=== PATIENT | male | born 1990 | race Caucasian/White ===

== ENCOUNTER 2024-12-11 14:03 | Outpatient (AMB) | payer OTHER, SELFPAY ==
--- NOTE | 2024-12-11 14:07 | A.OFFPC_ITS ---
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 Assistant Teacher Required: No Accompanied by: Self / Same As Patient Allergies No Known Allergies Allergy (Verified 12/11/24 14:28) Medication List - Last Reconciled 12/11/24 by RUFINO Baltazar escitalopram oxalate 10 mg PO DAILY Tobacco use date assessed: 12/11/24 Dental Screening Dental Screen Date: 12/11/24 Did you have a dental visit in the last 12 months?: Yes Did you have a dental problem in the last 6 months where you did not have access to dental care?: No Was dental information given to patient?: Patient has dentist HPI MAJOR ACCOUNT MANAGER-PE PHQ-9 needed. HPI Details Previous PCP:Ac Arroyo [place], [facility] Last visit:April PE: He is not sure Specialist: psych BHN was there but finished fdc house OBGYN:n/a Past medical history: Left knee fracture last year February, and the insurance, overdoses, detoxes, heroin, cocaine, Medications: hydroxyzine, campral , escitalopram oxalate 10 mg daily Family HX: Mother struggled with drugs Problem: The patient is a 34-year-old male presenting to [facility] care. He reports concerns about a persistent cough, sinus issues, and a history of substance use disorder. The patient reports a persistent cough that began two weeks ago following a cold. The cough is described as phlegmy and occurs primarily in the mornings and at night, with occasional voice changes. The patient works in an environment with significant dust exposure, which may contribute to the symptoms. The patient has a history of a knee fracture sustained in February of the previous year. Physical therapy was initiated but discontinued due to insurance issues. The patient experiences intermittent knee pain, which is expected to improve over time. The patient has a history of substance use disorder, including previous overdoses and detoxifications. Currently, the patient is engaged in therapy every two weeks and sees a psychiatrist periodically for medication management. The patient is on medications including Lexapro, Campral, and hydroxyzine for anxiety and substance use management. [facility] Medical History (Updated 12/13/24 @ 22:04 by RUFINO Baltazar) Drug overdoses Heroin abuse Cocaine abuse Family History Mother Drug addiction Social History Household Members: Family Housing: Apartment Alcohol intake: never Patient Tobacco Use Status: Current everyday Tobacco user Tobacco use type: Cigarette Cigarette Packs Per Day: 0.5 Cigarettes Per Day: 10 e-Cigarette/Vaping Use: Never Used Current occupational status: employed Current occupation: [employer] Cognitive needs: No Hearing needs: No Vision needs: No Questionnaire PHQ-9 Over the last 2 weeks, how often have you been bothered by any of the following problems? 1. Little interest or pleasure in doing things: not at all 2. Feeling down, depressed, or hopeless: several days 3. Trouble falling or staying asleep, or sleeping too much: several days 4. Feeling tired or having little energy: several days 5. Poor appetite or overeating: more than half the days 6. Feeling bad about yourself - or that you are a failure or have let yourself or your family down: not at all 7. Trouble concentrating on things, such as reading the newspaper or watching television: not at all 8. Moving or speaking so slowly that other people could have noticed. Or the opposite - being so fidgety or restless that you have been moving around a lot more than usual: not at all 9. Thoughts that you would be better off or of hurting yourself in some way: not at all Total score: 5 Depression Screening Interpretation: Positive Depression Screening Done: Yes 26239 - PHQ-9 Billing: Yes Source: Developed by Drs. Jovanni Self, Loyda Solano, Robert Zamora and colleagues, with an educational monisha from [employer]. Thrive Questionnaire Date Thrive assessed: 12/11/24 I am a: Patient What is your living situation today?: I do not have a steady places to live I am temporarily staying with others Within the past 12 months, did the food you bought not last and you didn't have the money to get more?: Often true Within the past 12 months, did you worry whether your food would run out before you got money to buy more?: Sometimes True Do you have trouble paying for medicines?: Yes Do you have trouble getting transportation to medical appointments?: Yes Do you have trouble paying your heating and electricity bill?: Yes Do you have trouble taking care of your child, family member or friend?: Yes Do you have trouble with day-to-day activities such as bathing, preparing meals, shopping, managing finances, etc.?: No Are you currently unemployed and looking for a job?: No Are you interested in more education?: Yes Please select the resources that you would like help with: Housing/Mcfp, Food, Transportation, Utilities and Education Currently or been in a relationship where the following occur: No concerns reported THRIVE Score: 5 AUDIT C Alcohol Use Questionnaire (AUDIT-C) 1. How often do you have a drink containing alcohol?: Never Total Score: 0 NICOLAS-7 AMB Questionnaire NICOLAS-7 Date NICOLAS - 7 assessed: 12/11/24 Feeling nervous, anxious, or on edge: 1 = Several days Not being able to stop or control worryin = Several days Worrying too much about different things: 1 = Several days Trouble relaxin = Several days Being so restless that it is hard to sit still: 1 = Several days Becoming easily annoyed or irritable: 1 = Several days Feeling afraid as if something awful might happen: 0 = Not at all Total NICOLAS-7 score (0-4 normal; 5-9 mild; 10-14 moderate; 15-21 severe): 6 Source: Developed by Drs. Jovanni Self, Loyda Solano, Robert Zamora and colleagues, with an educational monisha from [employer]. NICOLAS-7 Assessment Billing NICOLAS-7 Assessment Tool: NICOLAS-7 Assessment 97315 Review of Systems Const Denies headache(s) Eyes Denies loss of vision ENT Denies vertigo, Denies dizziness, Denies headache(s), Reports nasal congestion, Reports post nasal drip and Denies sore throat Card Denies chest pain, Denies leg edema and Denies lightheadedness Resp Reports cough, Denies hemoptysis and Denies wheezing GI Denies abdominal pain, Denies melena, Denies constipation, Denies diarrhea and Denies vomiting Denies dysuria, Denies urinary frequency and Denies urinary urgency Musc Reports arthralgias (left knee ), Denies joint swelling, Denies numbness and Denies tingling Skin/Breast Denies lesions and Denies rash Neuro Denies Abnormal speech present, Denies behavioral changes, Denies vertigo, Denies dizziness, Denies headache(s), Denies loss of vision, Denies memory loss, Denies numbness and Denies tingling Psych Reports anxiety, Denies behavioral changes, Reports depression, Denies memory loss, Denies panic attacks, Denies homicidal ideation and Denies suicidal ideation Al/Lymph Denies easy bleeding and Denies easy bruising Aller/Immun Denies wheezing Physical exam (Primary Care) Vital Signs: Last Vital Signs Temp 97.1 F 12/11/24 14:13 Pulse 92 12/11/24 14:13 Resp 18 12/11/24 14:13 BP 94/60 12/11/24 14:13 Pulse Ox 96 12/11/24 14:13 Oxygen Delivery Method Room Air 12/11/24 14:13 BMI result Body Mass Index 36.1 Tobacco/Smoking Status: Tobacco use Status Tobacco use date assessed 12/11/24 12/11/24 14:25 Patient Tobacco Use Status Current everyday Tobacco 12/11/24 14:25 Tobacco use type Cigarette 12/11/24 14:25 e-Cigarette/Vaping Use Never Used 12/11/24 14:25 PHQ-9: PHQ-9 Score PHQ-9: Total score 5 12/13/24 21:43 Depression Screening Interpretation: Positive Thrive Assessment: Date of Thrive Assessment Date Thrive assessed 12/11/24 12/11/24 14:25 Currently or been in a relationship where the following occur: No concerns reported Const General: healthy appearing, no acute distress, alert and awake Nutritional Appearance: well nourished Orientation/consciousness: oriented to person, oriented to place and oriented to time HENMT Ears: TM's normal bilaterally General nose exam: Abnormal mucous membranes and turbinates present boggy bilateral and erythematous bilateral and Nasal discharge present purulent bilateral Throat: Yes posterior oropharynx normal Eyes Conjunctivae: conjunctivae normal Sclerae: sclerae normal Pupils: Equal, round and reactive pupils present Neck Neck: Yes no lymphadenopathy and Yes no JVD Thyroid: Thyroid normal Carotids: no bruits Resp Effort & Inspection: normal respiratory effort and not tachypneic Auscultation: no crackles, no rales, no rhonchi and no wheezes Cardio Rate: regular rate Rhythm: regular rhythm Heart sounds: S1 normal heart sound present, S2 normal heart sound present, no murmurs and normal S1 and S2 GI Palpation (GI): Soft to palpation, nontender, no hepatomegaly and no splenomegaly Auscultation: normal bowel sounds General: Yes no CVA tenderness Back/Spine/Pelvis Back: no CVA tenderness Thoracic/Lumbar Spine: thoracic and lumbar spine normal to inspection Skin General skin exam: no rashes or lesions noted and dry skin Neuro General: oriented to person, oriented to place and oriented to time Cranial nerves: Yes Equal, round and reactive pupils present Speech: No Abnormal speech present Gait exam (Neuro): Normal gait present Motor exam (neuro): no tremor noted Extrem Right upper extremity: full ROM Left upper extremity: full ROM Right lower extremity: full ROM; no edema Left lower extremity: full ROM and knee Details: no tenderness and no swelling; no edema Psych Mental Status: mental status grossly normal Speech and movement: Normal speech and movement present Affect: normal affect Attitude: cooperative Thought process: Normal thought process present Coding Level of Care Code New Pt Level 4 (94904) Diagnoses Anxiety F41.9 Left knee pain, unspecified chronicity M25.562 Chronicity: unspecified Rhinosinusitis J32.9 Heroin abuse F11.10 Cocaine abuse F14.10 Accidental drug overdose, subsequent encounter T50.080M Encounter type: subsequent encounter Injury intent: accidental or unintentional Additional Codes PHQ-9 - 39555 - PHQ-9 Billing: Yes ([id number]) NICOLAS-7 Assessment Billing - NICOLAS-7 Assessment Tool: NICOLAS-7 Assessment 96575 ([id number]) Time Spent (min) 38 Assessment & Plan Assessment & Plan (1) Anxiety: Code(s): F41.9 - Anxiety disorder, unspecified Category: Medical Plan: The patient is currently managing anxiety with medications including Lexapro and hydroxyzine. Continued psychiatric evaluations are recommended to monitor medication efficacy and adjust dosages as needed. (2) Left knee pain: Code(s): M25.562 - Pain in left knee Category: Medical Qualifiers: Chronicity: unspecified Qualified Code(s): M25.562 - Pain in left knee Plan: Patient had a fracture in February,. The patient is advised to monitor knee pain and consider physical therapy if symptoms persist. (3) Rhinosinusitis: Code(s): J32.9 - Chronic sinusitis, unspecified Category: Medical Plan: The patient is prescribed Augmentin and a nasal spray to address the sinus infection. The use of fwtm-ozu-dhwrhpm allergy medications such as Claritin or Zyrtec is suggested to alleviate symptoms. (4) Heroin abuse: Code(s): F11.10 - Opioid abuse, uncomplicated Category: Medical Plan: Addictive medicine referral placed (5) Cocaine abuse: Code(s): F14.10 - Cocaine abuse, uncomplicated Category: Medical Plan: Addictive medicine referral placed (6) Drug overdoses: Code(s): T50.901A - Poisoning by unspecified drugs, medicaments and biological substances, accidental (unintentional), initial encounter Category: Medical Qualifiers: Encounter type: subsequent encounter Injury intent: accidental or unintentional Qualified Code(s): T50.901D - Poisoning by unspecified drugs, medicaments and biological substances, accidental (unintentional), subsequent encounter Plan: The patient reports 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 This he would like to obtain in the near future. The patient will be referred to addiction Medicine for evaluation and monitoring. Plan Labs ordered for the patient to complete and return for complete physical 8 weeks Orders: Orders Complete Blood Count Auto Diff 12/11/24 Z00.00 - Encounter for general adult medical examination without abnormal findings Comprehensive [place]. Panel Fast 12/11/24 Z00. - Encounter for general adult medical examination without abnormal findings UA CC w/rflx Micro + Cult 12/11/24 Z00.00 - Encounter for general adult medical examination without abnormal findings TSH reflex Free T4 12/11/24 Z00. - Encounter for general adult medical examination without abnormal findings Lipid Panel 12/11/24 Z00. - Encounter for general adult medical examination without abnormal findings Vitamin D 25-OH Total 12/11/24 Z00.00 - Encounter for general adult medical examination without abnormal findings Medications: New amoxicillin-pot clavulanate 875-125 mg 1 tab PO BID 14 tabs 0RF 7 days fluticasone propionate 50 mcg/actuation administer into each nostril 1 spray intranasal BID PRN 16 grams 0RF nasal congestion 14 days loratadine (Claritin) 10 mg PO DAILY PRN 30 tabs 0RF allergy symptoms
[2024-12-11 14:13] VITALS: BP 94/60; PULSE 92; RESP 18; TEMP 36.2; O2SAT 96; BMI 36.1
--- OUTSIDE RECORDS SUMMARY | 2024-12-11 14:16 | XMS_ITS | Clinical Summary ---
Author Organization [facility] Address [address] [place] [address] Care Team Providers Care Hand Sewer Name Role Phone Ac Arroyo Primary Care Provider [phone] Source Comments PLEASE NOTE, if this patient is a minor, it may be UNLAWFUL to discuss sensitive information that is contained in these records (such as FAMILY PLANNING, MENTAL HEALTH or SUBSTANCE ABUSE) with the minor patient's parent or other person without the patient's specific authorization.[facility] Medications albuterol HFA 90 mcg/actuation inhaler Inhale 2 Puffs into the lungs every 4 (four) hours as needed for wheezing 8 g 3 Active diclofenac sodium (VOLTAREN) 1 % gel Apply 4 g topically 2 (two) times daily as needed for pain 200 g 2 3 Active emtricitabine-t enofovir, TDF, (TRUVADA) 200-300 mg per tablet Take 1 Tablet by mouth once daily 30 Tablet 2 5 Active traZODone (DESYREL) 50 mg tablet Take 1 Tablet by mouth nightly at bedtime 30 Tablet 2 5 Active Active Problems Problem Noted Date Diagnosed Date Closed nondisplaced fracture of left patella Assessment & Plan (06/02/2024 2:40 PM EDT): Per MRI 03/17/24 No significant deformity or injury noted on exam today, but will renew referral to Ortho and PT NSAID effective, will defer any corticosteroid injection at present Cocaine use disorder, moderate 04/30/2024 Assessment & Plan (06/02/2024 2:45 PM EDT): Using cocaine to stay up, declines MAT at this time, feels managing on his own Alcohol use 04/22/2024 Assessment & Plan (06/02/2024 2:45 PM EDT): Declines MAT at this time Depression with anxiety 01/22/2023 Assessment & Plan (06/02/2024 2:44 PM EDT): Suspect influencing insomnia in conjunction with ETOH and cocaine use Will trial trazodone low dose Encouraged to attend follow up, introduced to bill luna and set up intake Assessment & Plan (01/22/2023 11:52 AM EST): PHQ2 Score: (!) 2 PHQ-9 Total Score (Auto Calculated): (!) 11 Depression Severity:: Moderate STEPHAN 7 Score: 01/17/2023 4:38 PM Stephan-7 Total (!) 12 Pt finds these symptoms disabling, challenging to navigate public transport due to anxiety and fear in crowds Pending connection to at [facility] Reviewed [facility] intake process Acute bilateral low back pain without sciatica 0 11/27/2022 Assessment & Plan (01/22/2023 11:52 AM EST): Will place PT referral Assessment & Plan (11/27/2022 2:07 PM EDT): Working in [employer], most likely MSK strain, trial voltaren gel, exercises, if continues, consider PT ref, no red flags for imaging or urgent ref today Plantar fasciitis 11/27/2022 Assessment & Plan (11/27/2022 2:08 PM EDT): Pain and exam c/w plantar fasciitis, given exercises to complete, advised as best able supportive, well fitting shoes, if continues, ref podiatry Obesity (BMI 35.0-39.9 without comorbidity) 11/09 Opioid use disorder, moderate, in sustained brayan ssion 11/27/2022 History of syphilis 11/27/2022 Social History Tobacco Use Types Packs/Day Years Used Date Smoking Tobacco: Every Day Cigarettes Passive Smoke Exposure: Current Tobacco Cessation:Ready to Q uit: No; Counseling Given: Yes Social Connections Answer Date Recorded Connectedness 0 12/01/2023 Financial Resource Strain Answer Date R ecorded Financial Resource Strain 0 2022 Stress Answer Date Recorded Stress 0 11/01/2022 Physical Activity Answer Date Recorded Physical Activity 0 11/01/2022 Food Insecurity Answer Date Recorded Food 0 12/05/2023 Transportation Needs Answer Date Record ed Transportation 0 11/01/2022 Housing Stability Answer Date Recorded Housing 0 11/01/2022 Safety and Environment Answer Date Chalino rded Safety 0 11/01/2022 Utilities Answer Date Recorded Utilities 0 11/01/2022 Employment Answer Date Recorded Stress 0 12/01/2023 Sex and Gender Information Value Date Recorded Sex Assigned at Not on file Legal Sex Male 10:56 AM PDT Gender Identity Not on file Sexual Orientation Not on file Last Filed Vital Signs Vital Sign Reading Time Taken Comments Blood Pressure 137/87 04/30/2024 12:30 PM EST Pulse 104 04/30/2024 12:30 PM EST Temperature 36.8 C (98.3 F) 04/30/2024 12:30 PM EST Respiratory Rate 16 04/30/2024 12:30 PM EST Oxygen Saturation 97% 04/30/2024 12:30 PM EST Inhaled Oxygen Concentration - - Weight 99.3 kg (219 lb) 04/30/2024 12:30 PM EST Height 182.9 cm (6') 11/01/2022 11:26 AM EDT Body Mass Index 29.7 11/01/2022 11:26 AM EDT Plan of Treatment Health Maintenance Due Date Last Done Comments Imm-DTaP/Tdap/Td (1 - Tdap) 02/09/2011 Imm-Pneumococcal (1 of 2 - PCV) 02/09/2011 Imm-HPV (1 - 3-dose SCDM series) 02/09/2019 Depression Monitoring 04/19/2023 01/17/2023 Anxiety Screening 01/18/2024 01/17/2023 [id number] ( season) 2024 Imm-Influenza (#1) 2024 Hypertension Screening (#1) 04/30/2025 LTBI Screening (#1) 04/30/2025 04/30/2024 Tobacco Cessation Counseling (#1) 04/30/2025 Alcohol and Drug Screen Completed 04/30/2024 HIV Screening Completed 04/30/2024, 11/01/2022 Hepatitis C Screening Completed 04/30/2024, 023 Imm-Hepatitis A Discontinued Imm-Hepatitis B Discontinued Procedures Procedure Name Priority Date/Time Associated Diagnosis Comments HIV 1/2 AG & AB W/RFLX (4TH GEN) Routine 04/30/2024 3:34 PM EST Cocaine use disorder, moderate (HCC-CMS) QUANTIFERON-TB GOLD PLUS Routine 04/30/2024 3:34 PM EST Screening examination for pulmonary tuberculosis HEPATITIS C AB W/RFLX HCV RNA, QT, RT PCR Routine 04/30/2024 3:34 PM EST Cocaine use disorder, moderate (HCC-CMS) from Last 3 Months or Most Recently Relevant to Health Maintenance Results * QUANTIFERON-TB GOLD PLUS (04/30/2024 3:34 PM EST) QUANTIFERON NEGATIVE NEGATIVE [facility] Comment: Negative test result. M. tuberculosis complex infection unlikely. NIL 0.02 IU/mL [facility] MITOGEN-NIL >10.00 IU/mL [employer] [facility] TB1-NIL 0.00 IU/mL [facility] TB2-NIL 0.00 IU/mL [facility] Comment: The Nil tube value reflects the background interferon gamma immune response of the patient's blood sample. This value has been subtracted from the patient's displayed TB and Mitogen results. Lower than expected results with the Mitogen tube prevent false-negative Quantiferon readings by detecting a patient with a potential immune suppressive condition and/or suboptimal pre-analytical specimen handling. The TB1 Antigen tube is coated with the M. tuberculosis-specific antigens designed to elicit responses from TB antigen primed CD4+ helper T-lymphocytes. The TB2 Antigen tube is coated with the M. tuberculosis-specific antigens designed to elicit responses from TB antigen primed CD4+ helper and CD8+ cytotoxic T-lymphocytes. For additional information, please refer to https://education.[employer]amel[employer]/faq/VVK427 (This link is being provided for informational/ educational purposes only.) Blood Blood / Unknown 04/30/2024 3 :34 PM EST 04/30/2024 3:34 PM EST us [facility] - BLOOD DRAW Final Result Performing Organization Address [facility]/ZIP Co de Phone Number [facility] [address] [address], [facility] [address] [phone] * Hep C AB w/reflex to HCV RNA (04/30/2024 3:34 PM EST) HEPATITIS C ANTIBODY NON-REACT DIAZ NON-REACT DIAZ [facility] Comment: HCV antibody was non-reactive. There is no laboratory evidence of HCV infection. In most cases, no further action is required. However, if recent HCV exposure is suspected, a test for HCV RNA (test code 15889) is suggested. For additional information please refer to http://education.[employer]/faq/QCO45p2 (This link is being provided for informational/ educational purposes only.) Blood Blood / Unknown 04/30/2024 3 :34 PM EST 04/30/2024 3:34 PM EST us [facility] - BLOOD DRAW Edited Result - Final Performing Organization Address [facility]/ZIP Co de Phone Number [facility] [address] [address], [facility] [address] [phone] * HIV-1/2 AB and AG (04/30/2024 3:34 PM EST) HIV AG/AB, 4TH GEN NON-REAC TIVE NON-REAC TIVE [facility] Comment: HIV-1 antigen and HIV-1/HIV-2 antibodies were not detected. There is no laboratory evidence of HIV infection. PLEASE NOTE: This information has been disclosed to you from records whose confidentiality may be protected by state law. If your state requires such protection, then the state law prohibits you from making any further disclosure of the information without the specific written consent of the person to whom it pertains, or as otherwise permitted by law. A general authorization for the release of medical or other information is NOT sufficient for this purpose. For additional information please refer to http://education.[employer]/faq/MIY839 (This link is being provided for informational/ educational purposes only.) The performance of this assay has not been clinically validated in patients less than 2 years old. Blood Blood / Unknown 04/30/2024 3 :34 PM EST 04/30/2024 3:34 PM EST [facility] - BLOOD DRAW Final Result Performing Organization Address City/State/[facility] Co de Phone Number [facility] [place] [facility] [address] [place] [address], [facility] [address] [phone] from Last 3 Months or Most Recently Relevant to Health Maintenance Insurance [facility] [employer] Member Subscriber Plan / Payer (Ef fective 2024-Present) Name:Jona Willett Relation to Subscriber:Self Name:Jona Willett Payer ID:[id number] Group ID:Not on file Type:Medicaid Address: [address] [address] [place] [address] [facility] Care Teams Hand Sewer Relationship Specialty Start Date End Date Ac Arroyo [place] [address] [place] [id number] PCP - General [facility]IC[facility] 11/01/22
--- OUTSIDE RECORDS SUMMARY | 2024-12-11 14:16 | XMS_ITS | Clinical Summary ---
Author Organization [facility] Address [address] [place] [address] Phone Care Team Providers Care Heart Surgeon Name Role Phone Jesse Zavala Primary Care Provider Allergies No known active allergies Social History Tobacco Use Types Packs/Day Years Used Date Smoking Tobacco: Never Assessed Sex and Gender Information Value Date Recorded Sex Assigned at Not on file Legal Sex Male 5:44 AM EST Gender Identity Not on file Sexual Orientation Not on file Last Filed Vital Signs Vital Sign Reading Time Taken Comments Blood Pressure 128/78 07/04/2024 11:38 PM EDT Pulse 90 07/04/2024 11:38 PM EDT Temperature 36.7 C (98.1 F) 07/04/2024 11:38 PM EDT Respiratory Rate 20 07/04/2024 11:38 PM EDT Oxygen Saturation 98% 07/04/2024 11:53 PM EDT Inhaled Oxygen Concentration - - Weight 115 kg (254 lb 9.6 oz) 07/04/2024 11:38 P M EDT Height 182.9 cm (6') 07/04/2024 11:38 PM EDT Body Mass Index 34.53 07/04/2024 11:38 PM EDT Plan of Treatment Health Maintenance Due Date Last Done Comments DTaP,Tdap,and Td Vaccines (1 - Tdap) 02/09/2011 Hepatitis B Vaccines (1 of 3 - 19+ 3-dose series) 02/09/2011 HPV Vaccines (1 - 3-dose SCD M series) 02/09/2019 HIV Screening 04/09/2023 Social Influencers of Health Screening 04/09/2023 Depression Screening 03/11/2024 COVID-19 Vaccine (3 - 2024-2 6 season) 2024 12/11/2021, 11/20/2021 Influenza Vaccine (#1) 2024 Cholesterol Screening (Lipid Panel) 11/02/2027 11/01/2022 RSV Immunization Adult Patients (1 - 1-dose 75+ series) 02/09/2067 Hepatitis C Screening Completed 04/30/2024 HIB Vaccines Aged Out No longer eligi ble based on patient's age to complete this topic Hepatitis A Vaccines Aged Out No long er eligible based on patient's age to complete this topic IPV Vaccines Aged Out No longer eligi ble based on patient's age to complete this topic MMR Vaccines Aged Out No longer eligi ble based on patient's age to complete this topic Meningococcal ACWY Vaccine Aged Out N o longer eligible based on patient's age to complete this topic Meningococcal B Vaccine Aged Out No l onger eligible based on patient's age to complete this topic Pneumococcal Vaccine: Pediatrics (0 to 5 Years) and At-Risk Patients (6 to 49 Years) Aged Out No longer eligible b ased on patient's age to complete this topic RSV Immunization Patients Under 20 months Aged Out No longer eligible b ased on patient's age to complete this topic Varicella Vaccines Aged Out No longer eligible based on patient's age to complete this topic Insurance [employer] Care Teams Heart Surgeon Relationship Specialty Start Date End Date Jesse Zavala FNP [address] [place] [address] PCP - General Family Medicine 07/05/24
== END 2024-12-11 16:12 | disposition home or self-care (01) ==
DX: J32.9 Chronic sinusitis, unspecified (principal); F41.9 Anxiety disorder, unspecified; F11.10 Opioid abuse, uncomplicated; F14.10 Cocaine abuse, uncomplicated; M25.562 Pain in left knee; T50.901D Poisoning by unspecified drugs, medicaments and biological substances, accidental (unintentional), subsequent encounter

== ENCOUNTER → 2024-12-11 14:03 | Outpatient (BNVA) | payer OTHER, SELFPAY | DX: R05.3 Chronic cough (principal); F41.9 Anxiety disorder, unspecified; M25.562 Pain in left knee; J32.9 Chronic sinusitis, unspecified; F11.10 Opioid abuse, uncomplicated; F14.10 Cocaine abuse, uncomplicated; T50.901D Poisoning by unspecified drugs, medicaments and biological substances, accidental (unintentional), subsequent encounter; Z87.81 Personal history of (healed) traumatic fracture | CPT/HCPCS: 96127; 99202 ==